=== PATIENT | female | born 1980 | race Two or more races ===

== ENCOUNTER → 2016-12-09 | Outpatient (CLI) | payer OTHER ==
[2016-12-07 14:13] VITALS: BMI 31.7
[2016-12-09 12:09] VITALS: BP 130/96; PULSE 87; RESP 18; TEMP 98
--- NOTE | 2016-12-09 12:46 | P.HPIM ---
History of Present Illness H&P Date: 12/09/16 Chief Complaint: low back pain This is a 36-year-old patient who comes in for a second opinion for chronic pain in low back without radiation to hips or legs, but does c/o occasional tingling in her feet when she stands up. Patient has not been taking any medications from primary care physician. Patient denies adverse drug effects from medications. Patient also denies new-onset weakness, bowel/bladder incontinence, or any other signs or symptoms of cauda equina syndrome. There are no signs of acute intoxication, and no indications of medication diversion or overuse. Patient notes that pain worsens significantly with standing and walking, and improves with sitting, rest, ice, and medication. Patient has used several types of medications for pain, including NSAIDS, OPIOIDS, TRAMADOL, ANTIDEPRESSANTS, and BENZODIAZEPINES. Patient HAS NOT had surgery. Patient HAS had injections previously but does not know what kind (Adam did x 5). Patient HAS had physical therapy recently. In addition to above, 13-point review of systems is also negative for chest pain , shortness of breath, changes in vision, changes in hearing, new onset weakness , abdominal pain, diarrhea, extreme fatigue, malaise, fever, skin changes, homicidal or suicidal ideation, or bowel or bladder incontinence. Vital Signs: Reviewed in EMR Gen: WDWN, AAOx3, NAD HEENT: NCAT, EOMI, hearing grossly normal Pulm: resp unlabored Abd: soft, NT, ND Neck: supple, trachea midline ROM in flexion lumbar spine: reduced ROM in extension lumbar spine: reduced Lumbar paravertebral tenderness: + Facet loading: + bilateral, L > R SI joint tenderness: neg Shawn's test: + R > L Straight leg raise: neg Neuro: CN II-XII grossly intact, muscle strength lower extremities PRESERVED Past Medical History Past Medical History: Cancer, Seizure Disorder, Thyroid Disorder Additional Past Medical History / Comment(s): hx anemia, epilepsy as child, cervical cancer, lower back pain History of Any Multi-Drug Resistant Organisms: None Reported Past Surgical History: Cholecystectomy Additional Past Surgical History / Comment(s): laser eye surgery Past Anesthesia/Blood Transfusion Reactions: No Reported Reaction Smoking Status: Current every day smoker - Past Family History Mother Family Medical History: No Reported History Medications and Allergies Home Medications Medication Instructions Recorded Confirmed Type ARIPiprazole [Abilify] 20 mg PO DAILY 12/07/16 12/09/16 History Dextroamphetamine/Amphetamine 30 mg PO DAILY 12/07/16 12/09/16 History [Adderall] Allergies Allergy/AdvReac Type Severity Reaction Status Date / Time No Known Allergies Allergy Verified 12/09/16 11:56 Results Comments: MRI lumbar spine dated 04/30/2016 demonstrates an 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 At the L3-L4 and L4-L5 levels there are mild facet degenerative changes bilaterally with a preserved spinal canal and preserved bilateral neural foramina. At the L5-S1 level there is a broad-based left paracentral disc protrusion minimally effacing the thecal sac with patent neural foramina. Assessment and Plan (1) Spondylosis of lumbar region without myelopathy or radiculopathy Status: Chronic (2) Lumbar disc herniation Status: Chronic (3) Chronic pain syndrome Status: Chronic (4) Lumbar degenerative disc disease Status: Chronic Plan: 1. Explanation: Opioid and psychological risk scores were reviewed. Diagnoses , prognoses, and multiple treatment options including but not limited to physical therapy, interventional therapies, adjuvant medical therapies, narcotic medication therapies, and surgery were discussed with the patient and all questions were answered to the patient's satisfaction. 2. Opioid agreement: no opioids prescribed today 3. Counseling: The patient was counseled extensively on SMOKING CESSATION, BODY MASS INDEX, EXERCISE. Specifically, the patient was instructed regarding the importance of smoking cessation, obesity, and exercise in the context of both chronic pain and overall health. 4. Procedures: bilateral lumbar MBB L3-S1 5. Consultations: none 6. Investigations: none 7. Medications: none prescribed 8. Disposition: f/u for procedure as scheduled PQRS measures: 1-Patient's medications are documented in the chart. 2-Tobacco use is positive, counseling given 3-Patient has not had a pneumococcal vaccine. 4-Advanced care planning discussed, patient unable to give. 5-Opioid contract NOT signed with the patient as no opioids prescribed. 6-Pain positive, follow-up visit or procedure scheduled 7-Patient's blood pressure measured and documented, and patient will follow up with the primary care due to hypertension. 8-Patient's weight was measured, and body mass index ABOVE the normal limits, and counseling was done. Patient instructed to follow up with PCP. 9-Patient WAS NOT identified as an unhealthy alcohol user. Time with Patient: Greater than 30
== END ==
LOC: PNWHC3 11:38
PROVIDERS: ATTEND Anesthesiology
DX: M51.26 Other intervertebral disc displacement, lumbar region (principal); M51.36 Other intervertebral disc degeneration, lumbar region; M47.816 Spondylosis without myelopathy or radiculopathy, lumbar region; G89.4 Chronic pain syndrome; Z79.891 Long term (current) use of opiate analgesic; Z79.899 Other long term (current) drug therapy
CPT/HCPCS: 99211

== ENCOUNTER 2017-01-13 07:55 | Day surgery (SDC) | payer OTHER ==
[2017-01-06 14:07] VITALS: BMI 30.9
[2017-01-13 08:42] VITALS: RESP 16; TEMP 98.1
[2017-01-13] MEDS ORDERED: LIDOCAINE 1% 20 ML VIAL (10MG/ML) FOR IV START INTRADERMA ONE (08:45)
[2017-01-13] MEDS ORDERED: LACTATED RINGERS 1,000 ML IV ONE (08:45)
[2017-01-13] MEDS ORDERED: LACTATED RINGERS 1,000 ML IV SCH (09:30)
[2017-01-13] MEDS ORDERED: IV FLUID CONTINUATION 1,000 ML IV ONE (10:12)
--- NOTE | 2017-01-13 10:24 | FL ---
EXAMINATION TYPE: FL guided pain mgmt statistic DATE OF EXAM: 01/13/2017 HISTORY: Pain Bilat lumbar facets. 14 sec fl time. [address] Winston.
--- NOTE | 2017-01-13 10:31 | P.PCN ---
Date of Procedure: 01/13/17 Preoperative Diagnosis: Postoperative Diagnosis: Procedure(s) Performed: Implants: Surgeon: Ricky Winston Pathology: none sent Condition: stable Disposition: PACU Indications for Procedure: Operative Findings: Description of Procedure: PREOPERATIVE DIAGNOSIS: L3-L4, L4-L5, and L5-S1 spondylosis without myelopathy and facet arthropathy. POSTOPERATIVE DIAGNOSIS: L3-L4, L4-L5, and L5-S1 spondylosis without myelopathy and facet arthropathy. PROCEDURE DESCRIPTION: Patient presents for L3-L4, L4-L5 and L5-S1 diagnostic medial branch blocks under fluoroscopic guidance. The procedure is performed using fluoroscopic guidance during needle placement to assure proper position and maximize safety. ANESTHESIA: Local with 1% lidocaine; conscious sedation EBL: Minimal PROCEDURE INDICATION: Patient with lumbar facet arthropathy signs and symptoms, here for diagnostic medial branch block. Pt does not take any blood thinning medications. PROCEDURE DESCRIPTION: The patient was seen and identified in the preoperative area. Risks, benefits, complications, and alternatives were discussed with the patient (including but not limited to incomplete pain relief, bleeding, infection, nerve damage, and allergies to medications), the patient agreed to proceed with the procedure and signed the consent after all questions were answered. Patient was taken to the OR and time out was completed to verify proper patient, position, laterality of pain, and allergies. Pt was placed in the prone position and a pillow was placed under the abdomen to reduce lumbar lordosis. The lumbosacral area was prepped and draped in the usual sterile fashion. Using oblique fluoroscopy, the eye of the "Sonu dog" of right L4 vertebral body, which corresponds to the path of the medial branch originating from the level above, which is L3 in this case, was identified. Subsequently, a 22-gauge 3.5-inch spinal needle was inserted under fluoroscopic guidance toward the eye of the "Sonu dog" of the right L4 vertebral body, corresponding to the junction of the superior articular process and the transverse process of the pedicle of the same level. After needle tip confirmation on lateral view and after negative aspiration for CSF and blood and without paresthesias, 1 mL of a 6 ml solution of 0.5% preservative-free bupivacaine and 40 mg Kenalog was injected. Subsequently the needle was withdrawn intact and the same procedure was repeated for the right L4, right L5, left L3, left L4, and left L5 medial branches which together with right L3 medial branch correspond to the sensory innervation of the bilateral L3-L4, L4-L5, and L5-S1 facet joints. Needle was withdrawn intact after each injection. At the end of the procedure, the skin was cleansed and bandages were applied. COMPLICATIONS: None. DISPOSITION/PLAN: The patient taken to the recovery area after the procedure in a stable condition for observation. Patient was reexamined prior to discharge and there were no issues. Patient was discharged home, accompanied by an adult, after meeting discharged criteria. Discharge instructions were give to the patient by the staff. Patient was specifically instructed not to drive today and to rest for the rest of the day. If relief, plan to repeat LMBB bilateral at next visit.
[2017-01-13 10:41] VITALS: BP 126/88; PULSE 78
== END 2017-01-13 10:49 | disposition home or self-care (01) ==
LOC: ORPAIN 07:55
PROVIDERS: ATTEND Anesthesiology
DX: G89.29 Other chronic pain (principal); M47.816 Spondylosis without myelopathy or radiculopathy, lumbar region; M47.817 Spondylosis without myelopathy or radiculopathy, lumbosacral region; M46.96 Unspecified inflammatory spondylopathy, lumbar region; M46.97 Unspecified inflammatory spondylopathy, lumbosacral region; F90.9 Attention-deficit hyperactivity disorder, unspecified type; Z79.899 Other long term (current) drug therapy
CPT/HCPCS: 81025; 64493; 64494; 64495; 99152; J2250; J3301; 99153

== ENCOUNTER → 2017-02-08 | Day surgery (SDC) | payer OTHER ==
[2017-02-03 15:02] VITALS: BMI 31.7
[~2017-02-08] MED LIST: IV FLUID CONTINUATION 1,000 ML IV ONE; LACTATED RINGERS 1,000 ML IV ONE; LACTATED RINGERS 1,000 ML IV SCH; LIDOCAINE 1% 20 ML VIAL (10MG/ML) FOR IV START INTRADERMA ONE
[2017-02-08 07:07] VITALS: TEMP 97.5
--- NOTE | 2017-02-08 08:15 | P.PCN ---
Date of Procedure: 02/08/17 Preoperative Diagnosis: Lumbar spondylosis without myelopathy Postoperative Diagnosis: Same as above Procedure(s) Performed: Lumbar bilateral medial branch block under fluoroscopic guidance Implants: Anesthesia: other (Moderate conscious sedation with IV Versed only) Surgeon: Inna Reese Pathology: none sent Condition: stable Disposition: PACU Indications for Procedure: Operative Findings: Description of Procedure: The patient was seen in preoperative holding area consent was obtained then she was brought into the procedure room and placed in prone position. Skin was prepped with ChloraPrep and draped in a sterile manner. Lidocaine 1% was used to numb the skin up at the target points that were chosen as follows: For the L5 -S1 level which corresponds to the dorsal ramus of L5 the target point was at the superior medial aspect of the sacral ala on each side of the spine on the AP view of fluoroscopy, and for the L2,L3 and L4 medial branches the target points were the connection between the transverse process and the superior articular process of L3,L4 and L5 vertebra respectively on the oblique views of fluoroscopy. I used 22-gauge 3-1/2 inch Quincke spinal needles for this procedure and after contacting bone at the target points mentioned above I injected 1 mL of Marcaine 0.5%. Patient tolerated procedure well. No Steroids were used for this procedure and no IV fentanyl either.
--- NOTE | 2017-02-08 08:24 | FL ---
Fluoroscopy INDICATION: Pain FINDINGS: Fluoroscopy time: 9 seconds. Images obtained: 3. IMPRESSIONS: 1. Documentation of fluoroscopy.
[2017-02-08 08:48] VITALS: BP 122/84; PULSE 74; RESP 16
== END ==
LOC: ORPAIN 06:57
PROVIDERS: ATTEND Anesthesiology
DX: M47.816 Spondylosis without myelopathy or radiculopathy, lumbar region (principal)
CPT/HCPCS: 81025; 64493; 64494; 64495; 99152; J2250

== ENCOUNTER → 2017-03-23 | Outpatient (CLI) | payer OTHER ==
[2017-03-23 14:38] VITALS: BP 132/87; PULSE 85; RESP 16
--- NOTE | 2017-03-23 19:50 | P.CONS ---
History of Present Illness - Reason for Consult Consult date: 03/23/17 - History of Present Illness This is follow-up visit for this patient with a history of severe and chronic low back pain secondary to lumbar degenerative disc disease, lumbar facet arthropathy, we did interventional pain management injection, we have done medial branch block x2 , the first diagnostic medial branch block patient reported that she got 100% pain relief for several days, and the second diagnostic medial branch block patient reported she had 0 benefit, patient continued to have severe low back pain, intensity of the pain increased with standing, or walking and improved with rest , he denies any motor or sensory deficit , she denies any fever or night sweats, she has no change in the bowel movement or urination Past Medical History Past Medical History: Cancer, Seizure Disorder, Thyroid Disorder Additional Past Medical History / Comment(s): hx anemia, epilepsy as child, cervical cancer, lower back pain History of Any Multi-Drug Resistant Organisms: None Reported Past Surgical History: Cholecystectomy Additional Past Surgical History / Comment(s): laser eye surgery, pain procedure Past Anesthesia/Blood Transfusion Reactions: No Reported Reaction Past Psychological History: Bipolar Smoking Status: Current every day smoker Past Alcohol Use History: Occasional Additional Past Alcohol Use History / Comment(s): smokes 1/2-1 PPD, started smoking age 10 Past Drug Use History: None Reported - Past Family History Mother Family Medical History: No Reported History Medications and Allergies Home Medications Medication Instructions Recorded Confirmed Type Dextroamphetamine/Amphetamine 30 mg PO DAILY 12/07/16 03/23/17 History [Adderall] Allergies Allergy/AdvReac Type Severity Reaction Status Date / Time No Known Allergies Allergy Verified 03/23/17 14:28 Physical Exam Vitals: Vital Signs Pulse Resp BP Pulse Ox 03/23/17 14:29 85 16 132/87 100 Intake and Output 03/23/17 03/23/17 03/23/17 06:59 14:59 22:59 Other: Weight 82.1 kg Patient Weight 03/24/17 06:59 Weight 82.1 kg Physical Examinations : 1-Constitutiona : Cooperative , not in acute distress . 2-HEENT : nech ; supple , no Lymphadenopathy , normal thyroid size . eyes : no ptosis , no icterus, no photophobia . ENT : normal of hearing , normal oropharynx , no Thrush . 3- Respiratory : Chest clear to auscultations Bilaterally , no wheezing , no Rhonchi . 4- Cardiovascular : regular rate and rhythem , S1 , S2 , no S3 , no S4. 5- Gastrointestinal : abdomen soft no tenderness , bowel sounds positive all four quadrents , no organomegally . 6- Genitourinary : Defferred . 7- neurologic : Cranial nerve II to XII intact , no focal neurological deffecit . 8-psychatric : alert , oriented X 3 , appropriate affect , intact judgment and insight . 9-Lymphatic : no Lymphadenopathy . 10- musculoskeltal : , Lumber spine = normal moter stegnth lower extremities ,thigh and legs .5/5 deep tendon reflexes : normal Knee Jerk , normal ankle Jerk . positive lumber facet Loading Test strait leg raising test negative bilaterally Fabere test negative bilaterally Assessment and Plan Plan: Assessment and plan= chronic low back pain secondary to lumbar degenerative disc disease , lumbar spondylosis with lumbar facet arthropathy , Patient clinical examination support ,that most of the pain coming from the facetogenic component, we have done diagnostic medial branch block lumbar area she got under percent relief from the first injection then she got 0 benefit from the second injection, the best option at this point is to schedule patient to have a repeat diagnostic medial branch block lumbar area is L3-4 , L4-5, L5- S1 elicits positive then we'll proceed with the radiofrequency ablation of the medial branch and if it [place] and only option is to undergo lumbar epidural steroid injections, treatment plan discussed with the patient and she agreed with the preceding Time with Patient: Less than 30
== END | disposition home or self-care (01) ==
LOC: PNWHC3 14:25
PROVIDERS: ATTEND Specialist
DX: M51.36 Other intervertebral disc degeneration, lumbar region (principal); M47.816 Spondylosis without myelopathy or radiculopathy, lumbar region; M46.86 Other specified inflammatory spondylopathies, lumbar region; F17.200 Nicotine dependence, unspecified, uncomplicated; Z79.899 Other long term (current) drug therapy
CPT/HCPCS: 99211

== ENCOUNTER 2017-05-19 07:57 | Day surgery (SDC) | payer OTHER ==
[2017-05-17 13:38] VITALS: BMI 31.7
[~2017-05-19 07:57] MED LIST changes: -IV FLUID CONTINUATION 1,000 ML IV ONE; -LACTATED RINGERS 1,000 ML IV ONE; -LIDOCAINE 1% 20 ML VIAL (10MG/ML) FOR IV START INTRADERMA ONE
[2017-05-19 08:23] VITALS: RESP 18; TEMP 97.1
[2017-05-19] MEDS ORDERED: LIDOCAINE 1% 20 ML VIAL (10MG/ML) FOR IV START INTRADERMA ONE (08:27)
[2017-05-19] MEDS ORDERED: IV FLUID CONTINUATION 1,000 ML IV ONE (09:10)
[2017-05-19 09:27] VITALS: BP 123/85; PULSE 73
--- NOTE | 2017-05-19 09:29 | FL ---
EXAMINATION TYPE: FL guided pain mgmt statistic DATE OF EXAM: 05/19/2017 CLINICAL HISTORY: Low back pain. TECHNIQUE: Fluoroscopy. COMPARISON: None. FINDINGS: Fluoroscopic guidance was provided during pain relief procedure performed by Dr. Winston . A total of 6 seconds of fluoroscopic time was utilized during the procedure and 3 spot images are acq uired. Images acquired shows needle localization at several levels in the mid to lower lumbar spine. IMPRESSION: As Above.
--- NOTE | 2017-05-19 10:49 | P.PCN ---
Date of Procedure: 05/19/17 Surgeon: Ricky Winston Pathology: none sent Condition: stable Disposition: PACU Description of Procedure: PREOPERATIVE DIAGNOSIS: Lumbar spondylosis without myelopathy and facet arthropathy POSTOPERATIVE DIAGNOSIS: Lumbar spondylosis without myelopathy and facet arthropathy PROCEDURES: Right Radiofrequency thermocoagulation, L3-L4, L4-L5, and L5-S1 medial branch, with fluoroscopic guidance. ANESTHESIA: 1% lidocaine plain; Conscious sedation with versed/fentanyl EBL: Minimal PROCEDURE INDICATION: The patient with low back pain secondary to lumbar arthropathy who had more than 50% relief of pain with previous diagnostic lumbar medial branch block with bupivacaine. Patient presents for right lumbar RFA today; no use of blood thinners. PROCEDURE DESCRIPTION / TECHNIQUE: The patient was seen and identified in the preoperative area. Risks, benefits, complications, and alternatives were discussed with the patient (including but not limited to incomplete pain relief , bleeding, infection, nerve damage, and allergies to medications), the patient agreed to proceed with the procedure and signed the consent after all questions were answered. Patient was taken to the OR and time out was completed to verify proper patient , position, laterality of pain, and allergies. Pt was placed in the prone position. IV was started. Vital signs remained stable throughout the procedure. A pillow was placed under the patients chest to decrease lordosis. The lumbosacral area was prepped and draped in the usual sterile fashion. Vital signs were closely monitored during the procedure. Conscious sedation was used during the procedure to decrease patients anxiety. Using AP and then oblique fluoroscopy, the eye of the Sonu dog corresponding to the connection between the superior and transverse articular processes of right L3, L4, L5 and top of the sacrum were identified, marked, and localized with 1% lidocaine. Subsequently, a 20 gauge, 100-mm radiofrequency cannula with a 10-mm active tip was advanced guided by fluoroscopy to each of the eyes of the Sonu dog at the levels of all four medial branches. Each site then underwent sensory testing at 50 Hz and 0 to 1 volt and motor testing at 2 Hz and 0 to 3 volt with local stimulation, but no radicular symptoms down the legs. Thereafter all four medial branch sites underwent radiofrequency thermocoagulation at 80 degrees Celsius for 90 seconds after injecting 0.5 ml of PF lidocaine 1%. After thermocoagulation, 1 ml of the block solution containing Kenalog 40 mg and 2 mL of preservative-free normal saline was injected at all four medial branch levels after negative aspiration of CSF and blood and with no paresthesias. Cannulas were retracted while injecting lidocaine 1% until the needles were removed. At the end of the procedure, the skin was cleansed and bandages were applied. COMPLICATIONS: No acute complications. DISPOSITION / PLANS: The patient was placed in a supine position and transferred to the recovery area in a stable condition for observation and was discharged from the recovery room after meeting discharge criteria. Home discharge instructions given to the patient by the staff. The patient was reexamined prior to discharge. The patient will schedule a left lumbar RFA in 4- 6 weeks.
== END 2017-05-19 09:46 | disposition home or self-care (01) ==
LOC: ORPAIN 07:57
PROVIDERS: ATTEND Anesthesiology
DX: G89.29 Other chronic pain (principal); M47.816 Spondylosis without myelopathy or radiculopathy, lumbar region; M46.96 Unspecified inflammatory spondylopathy, lumbar region
CPT/HCPCS: 64635; 64636 ×2; 81025; J2250; J3301; J3010; 99152

== ENCOUNTER 2017-06-29 08:01 | Day surgery (SDC) | payer OTHER ==
[2017-06-18 12:25] VITALS: BMI 31.7
[2017-06-29] MEDS ORDERED: LIDOCAINE 1% 20 ML VIAL (10MG/ML) FOR IV START INTRADERMA ONE (08:37)
[2017-06-29 08:48] VITALS: TEMP 97.6
--- NOTE | 2017-06-29 10:00 | P.PCN ---
Date of Procedure: 06/29/17 Surgeon: Ricky Winston Pathology: none sent Condition: stable Disposition: PACU Description of Procedure: PREOPERATIVE DIAGNOSIS: Lumbar spondylosis without myelopathy and facet arthropathy POSTOPERATIVE DIAGNOSIS: Lumbar spondylosis without myelopathy and facet arthropathy PROCEDURES: Left Radiofrequency thermocoagulation, L3-L4, L4-L5, and L5-S1 medial branch, with fluoroscopic guidance. ANESTHESIA: 1% lidocaine plain; Conscious sedation with versed/fentanyl EBL: Minimal PROCEDURE INDICATION: The patient with low back pain secondary to lumbar arthropathy who had more than 50% relief of pain with previous diagnostic lumbar medial branch block with bupivacaine. Patient presents for left lumbar RFA today after getting good relief from right side done in April; no use of blood thinners. PROCEDURE DESCRIPTION / TECHNIQUE: The patient was seen and identified in the preoperative area. Risks, benefits, complications, and alternatives were discussed with the patient (including but not limited to incomplete pain relief , bleeding, infection, nerve damage, and allergies to medications), the patient agreed to proceed with the procedure and signed the consent after all questions were answered. Patient was taken to the OR and time out was completed to verify proper patient , position, laterality of pain, and allergies. Pt was placed in the prone position. IV was started. Vital signs remained stable throughout the procedure. A pillow was placed under the patients chest to decrease lordosis. The lumbosacral area was prepped and draped in the usual sterile fashion. Vital signs were closely monitored during the procedure. Conscious sedation was used during the procedure to decrease patients anxiety. Using AP and then oblique fluoroscopy, the eye of the Sonu dog corresponding to the connection between the superior and transverse articular processes of left L3, L4, L5 and top of the sacrum were identified, marked, and localized with 1% lidocaine. Subsequently, an 18 gauge, 100-mm radiofrequency cannula with a 10-mm active tip was advanced guided by fluoroscopy to each of the eyes of the Sonu dog at the levels of all four medial branches. Each site then underwent sensory testing at 50 Hz and 0 to 1 volt and motor testing at 2 Hz and 0 to 3 volt with local stimulation, but no radicular symptoms down the legs. Thereafter all four medial branch sites underwent radiofrequency thermocoagulation at 80 degrees Celsius for 90 seconds after injecting 0.5 ml of PF lidocaine 1%. After thermocoagulation, 1 ml of the block solution containing Kenalog 40 mg and 2 mL of preservative-free normal saline was injected at all four medial branch levels after negative aspiration of CSF and blood and with no paresthesias. Cannulas were retracted while injecting lidocaine 1% until the needles were removed. At the end of the procedure, the skin was cleansed and bandages were applied. COMPLICATIONS: No acute complications. DISPOSITION / PLANS: The patient was placed in a supine position and transferred to the recovery area in a stable condition for observation and was discharged from the recovery room after meeting discharge criteria. Home discharge instructions given to the patient by the staff. The patient was reexamined prior to discharge. The patient will schedule a follow-up as needed.
--- NOTE | 2017-06-29 10:19 | FL ---
EXAMINATION TYPE: FL guided pain mgmt statistic DATE OF EXAM: 06/29/2017 HISTORY: Flouroscopy time 7 seconds of fluoroscopy provided. IMPRESSION: 1. Fluoroscopy time.
[2017-06-29 10:25] VITALS: RESP 18
[2017-06-29] MEDS ORDERED: IV FLUID CONTINUATION 300 ML IV ONE (10:31)
[2017-06-29 10:41] VITALS: BP 120/85; PULSE 77
== END 2017-06-29 10:58 | disposition home or self-care (01) ==
LOC: ORPAIN 08:01
PROVIDERS: ATTEND Anesthesiology
DX: M47.816 Spondylosis without myelopathy or radiculopathy, lumbar region (principal); F32.9 Major depressive disorder, single episode, unspecified
CPT/HCPCS: 81025; 64635; 64636 ×2; J2250; J3301; J2001; J3010; 99152

== ENCOUNTER → 2017-07-15 | Outpatient (CLI) | payer OTHER ==
--- NOTE | 2017-07-15 20:52 | US ---
EXAMINATION TYPE: US pelvic complete DATE OF EXAM: 07/15/2017 COMPARISON: NONE CLINICAL HISTORY: N92.1 MENORRHAGIA W/IRR.CYCLE; 3 months of multiple menses; TECHNIQUE: Transvaginal (TV) per patient as bladder not full for TA US assessment Date of LMP: 07/14/2017 EXAM MEASUREMENTS: Uterus: 7.9 x 3.9 x 3.5 cm Endometrial Stripe: 0.4 cm Right Ovary: 2.4 x 2.2 x 1.8 cm Left Ovary: 3.3 x 3.0 x 1.9 cm 1. Uterus: Anteverted. couple of Nabothian cysts in cervix with larger = 0.5 x 0.5 x 0.5cm. 2. Endometrium: thickness is wnl for day 2 LMP 3. Right Ovary: multifollicular with largest cyst = 1.1 x 1.1 x 0.6cm 4. Left Ovary: multiple follicles with largest as simple cyst = 1.4 x 1.6 x 1.6cm 5. Bilateral Adnexa: wnl 6. Posterior cul-de-sac: wnl IMPRESSION: 1. Cysts within the bilateral ovaries.
== END | disposition home or self-care (01) ==
LOC: RADUSWWP 12:55
PROVIDERS: ATTEND Obstetrics & Gynecology
DX: N83.202 Unspecified ovarian cyst, left side (principal); N83.201 Unspecified ovarian cyst, right side; N92.1 Excessive and frequent menstruation with irregular cycle
CPT/HCPCS: 76830; 83001; 83002; 84146; 84443

== ENCOUNTER → 2017-08-10 | Outpatient (CLI) | payer OTHER ==
[2017-08-10 12:00] VITALS: BP 137/95; PULSE 84; RESP 16
--- NOTE | 2017-08-10 20:01 | P.PN ---
Subjective Progress Note Date: 08/10/17 This is a follow-up visit for this 36 years old female with a chronic history of severe low back pain, she was diagnosed with lumbar degenerative disc disease and lumbar spondylosis, we have done diagnostic medial branch block lumbar area, and later on we have done radiofrequency ablation of the medial branch lumbar area, patient reported that she had no benefit from the radiofrequency, the pain level was the same before and after the radiofrequency , and she had 0 benefit from it, and she reported that she had lumbar epidural steroid injections done by Dr. Medina neurologist, and she reported that she had no benefit from it, she tried different kind of pain medication , prescribed by Dr. Medina and she had side effects from it or no benefit, she tried physical therapy without any benefit, I discussed with the patient doesn't interview that she had no benefit from the interventional pain procedure, and she had no benefit from physical therapy, and she had no benefit from medication that was prescribed by Dr. Medina or she had side effects from the medication, there is nothing I can offer for this patient, only option for her is still see neuro surgeon/spine surgeon, for evaluation, patient reported that she will talk to her primary care, regarding the treatments options , Patient denies any motor or sensory deficit she denies any change in the bowel movement or urination she denies any fever or night sweats, and she is able to ambulate without any difficulty,, she will follow up with the pain clinic on a when necessary basis
== END | disposition home or self-care (01) ==
LOC: PNWHC3 11:18
PROVIDERS: ATTEND Specialist
DX: G89.29 Other chronic pain (principal); M51.36 Other intervertebral disc degeneration, lumbar region; M47.816 Spondylosis without myelopathy or radiculopathy, lumbar region
CPT/HCPCS: 99211

== ENCOUNTER 2017-08-12 08:56 | Day surgery (SDC) | payer OTHER ==
[2017-08-06 15:09] VITALS: BMI 29.2
[~2017-08-12 08:56] MED LIST changes: +HYDROmorphone 0.5 MG/0.5 ML SYRINGE IVP PRN; +ONDANSETRON 4 MG/2 ML VIAL IVP PRN; +Pre Op ABX Message 1 EACH MISC MISCELLANE ONE; +fentaNYL (PF) 50 MCG/ML 2 ML AMP IV PRN
--- NOTE | 2017-08-12 08:57 | P.HPOB ---
History of Present Illness H&P Date: 08/12/17 Chief Complaint: Dysfunctional uterine bleeding Anahy is a 36-year-old female with dysfunctional uterine bleeding. Bleeding is described as heavy and irregular. She relates that she is unable to function much of the time due to how heavy and irregular bleeding is she bleeds at least twice each month and this is been going on for number of months. Due to symptoms a D&C is required for tissue sampling and she is requesting NovaSure ablation at the same time to try and risks/benefits/alternatives were reviewed with the patient in detail and did include potentially but not limited to perforation of the uterus as well as failure of the procedure to work and or continued bleeding, as well as potentially pain due to adenomyosis that may occur in the future due to the ablation. On physical exam vital signs are stable and afebrile. Heart regular, lungs clear, extremities are without pain. Abdomen is soft nontender positive bowel sounds are noted. Pelvic exam is otherwise unremarkable. Her did have a vasectomy. Assessment dysfunctional uterine bleeding. Plan D&C with hysteroscopy and NovaSure ablation. 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) cervical cancer, lower back pain History of Any Multi-Drug Resistant Organisms: None Reported Past Surgical History: Cholecystectomy Additional Past Surgical History / Comment(s): laser eye surgery, pain procedure Past Anesthesia/Blood Transfusion Reactions: No Reported Reaction Smoking Status: Current every day smoker - Past Family History Mother Family Medical History: No Reported History Medications and Allergies Home Medications Medication Instructions Recorded Confirmed Type Dextroamphetamine/Amphetamine 30 mg PO DAILY 12/07/16 08/10/17 History [Adderall] Allergies Allergy/AdvReac Type Severity Reaction Status Date / Time No Known Allergies Allergy Verified 08/10/17 11:48 Exam Osteopathic Statement: *. No significant issues noted on an osteopathic structural exam other than those noted in the History and Physical/Consult.
[2017-08-12 09:38] VITALS: TEMP 97.6
[2017-08-12] MEDS ORDERED: LIDOCAINE 1% 20 ML VIAL (10MG/ML) FOR IV START INTRADERMA ONE (09:46)
[2017-08-12] MEDS ORDERED: KETOROLAC 30 MG/ML 1 ML VIAL ONE (10:39)
[2017-08-12] MEDS ORDERED: LIDOCAINE 1% INJ 10MG/ML (20 ML MDV) ONE (10:39)
[2017-08-12] MEDS ORDERED: PROPOFOL 10 MG/ML 20 ML VIAL IV ONE (10:39)
[2017-08-12] MEDS ORDERED: fentaNYL (PF) 50 MCG/ML 2 ML AMP ONE (10:39)
[2017-08-12] MEDS ORDERED: MIDAZOLAM 2 MG/2 ML VIAL ONE (10:39)
--- NOTE | 2017-08-12 11:14 | P.OP ---
Date of Procedure: 08/12/17 Preoperative Diagnosis: Dysfunctional uterine bleeding Postoperative Diagnosis: Same Procedure(s) Performed: D&C with hysteroscopy and NovaSure Anesthesia: PRADEEP Surgeon: Deven Rubalcava Pathology: other (Uterine curettings) Condition: stable Disposition: same day Operative Findings: No gross pathology Description of Procedure: Patient states the operating suite where a general anesthetic was found be adequate. She was prepped and draped in the normal sterile fashion and placed in the dorsal lithotomy position. Initially a speculum was inserted into the vagina and the anterior lip was identified and grasped with a Allis clamp. Cervix then dilated and sounded to uterine cavity length of 4 cm. Camera was then inserted pathologies noted therefore camera was removed and sharp curettings of the endometrium were obtained. This tissue was all collected and placed on Telfa and sent to pathology for evaluation. Once collected the NovaSure system was placed with a length of 4 and a width of 2.5 it was tested and enabled. The burn lasted for 2 minutes. At the conclusion of the burn NovaSure system was removed and camera was reinserted with excellent burn noted. All instruments were then removed sponge, lap, needle counts were all correct 2. Patient was then taken to the recovery room in stable and satisfactory condition. Plan - Discharge Summary New Discharge Prescriptions: New Ibuprofen [Motrin] 600 mg PO Q6HR PRN #30 tab PRN Reason: Pain No Action Dextroamphetamine/Amphetamine [Adderall] 30 mg PO DAILY Discharge Medication List Dextroamphetamine/Amphetamine [Adderall] 30 mg PO DAILY 12/07/16 [History] Ibuprofen [Motrin] 600 mg PO Q6HR PRN #30 tab 08/12/17 [Rx] Follow up Appointment(s)/Referral(s): Deven Rubalcava DO [Doctor of Osteopathic Medicine] - 2 Weeks Activity/Diet/Wound Care/Special Instructions: No heavy lifting, limit stairs and driving, and pelvic rest. If any high temperatures, heavy bleeding, or severe pain call my office
[2017-08-12 13:08] VITALS: BP 120/69; PULSE 74; RESP 18
== END 2017-08-12 13:10 | disposition home or self-care (01) ==
LOC: OR 08:56
PROVIDERS: ATTEND Obstetrics & Gynecology
DX: N93.8 Other specified abnormal uterine and vaginal bleeding (principal); E07.9 Disorder of thyroid, unspecified; Z85.41 Personal history of malignant neoplasm of cervix uteri; Z79.899 Other long term (current) drug therapy; F17.200 Nicotine dependence, unspecified, uncomplicated
CPT/HCPCS: 81025; 88305; 58563; J2250; J2405; J2001; J3010; J1885; J2704; J1170

== ENCOUNTER 2017-08-14 12:45 | Observation (INO) | payer OTHER ==
[2017-08-14] MEDS ORDERED: IBUPROFEN 600 MG TAB PO STA (13:16)
[2017-08-14] MEDS ORDERED: ACETAMINOPHEN TAB 325 MG TAB PO STA (13:16)
--- NOTE | 2017-08-14 13:18 | ED ---
General Adult HPI <David Koo - Last Filed: 08/14/17 15:22> - General Source: patient, RN notes reviewed Mode of arrival: ambulatory Limitations: no limitations <Amara Jordan - Last Filed: 08/14/17 15:30> - General Chief complaint: Fever Stated complaint: Post Op Issues-chills Time Seen by Provider: 08/14/17 13:04 - History of Present Illness Initial comments: 36-year-old female presents to the emergency department with a chief complaint of fever post uterine ablation 2 days ago. She states she developed a fever starting yesterday. She's had hot and cold the only other symptom she's had is bilateral lower extremity cramping. No cough no runny nose no nausea no vomiting no abdominal pain. Her vaginal bleeding is minimal. She states that she use Motrin Tylenol last night she just keeps getting the chills and fevers so they were concerned. No significant health history the child. Otherwise healthy. She does smoke.Patient denies any recent shortness of breath, chest pain, back pain, abdominal pain, nausea vomiting, numbness or tingling, dysuria or hematuria, constipation or diarrhea, headaches or visual changes, or any other current symptoms. (Amara Jordan) - Related Data Previous Rx's Medication Instructions Recorded Ibuprofen [Motrin] 600 mg PO Q6HR PRN #30 tab 08/12/17 Allergies Allergy/AdvReac Type Severity Reaction Status Date / Time No Known Allergies Allergy Verified 08/14/17 13:00 Review of Systems ROS Other: All systems not noted in ROS Statement are negative. <David Koo - Last Filed: 08/14/17 15:22> ROS Other: All systems not noted in ROS Statement are negative. <Amara Jordan - Last Filed: 08/14/17 15:30> ROS Statement: Those systems with pertinent positive or pertinent negative responses have been documented in the HPI. 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) cervical cancer, lower back pain History of Any Multi-Drug Resistant Organisms: None Reported Past Surgical History: Cholecystectomy Additional Past Surgical History / Comment(s): laser eye surgery, pain procedure Past Anesthesia/Blood Transfusion Reactions: No Reported Reaction Past Psychological History: Bipolar Smoking Status: Current every day smoker Past Alcohol Use History: None Reported Past Drug Use History: None Reported - Past Family History Mother Family Medical History: No Reported History <Amara Jordan - Last Filed: 08/14/17 15:30> General Exam <David Koo - Last Filed: 08/14/17 15:22> Limitations: no limitations External exam: Present: normal external exam Speculum exam: Present: normal speculum exam, cervical discharge (yellow) By manual exam: Present: normal by manual exam <Amara Jordan - Last Filed: 08/14/17 15:30> - General Exam Comments Initial Comments: General: The patient is awake and alert, in no distress, and does not appear acutely ill. Eye: Pupils are equal, round and reactive to light, extra-ocular movements are intact; there is normal conjunctiva bilaterally. No signs of icterus. Ears, nose, mouth and throat: There are moist mucous membranes and no oral lesions. Neck: The neck is supple, there is no tenderness. Cardiovascular: There is a regular rate and rhythm. No murmur, rub or gallop is appreciated. Respiratory: Lungs are clear to auscultation, respirations are non-labored, breath sounds are equal. No wheezes, stridor, rales, or rhonchi. Gastrointestinal: Soft, non-distended, non-tender abdomen without masses or organomegaly noted. There is no rebound or guarding present. No CVA tenderness. Bowel sounds are unremarkable. Back: There is no tenderness to palpation in the midline. There is no obvious deformity. No rashes noted. Musculoskeletal: Normal ROM, no tenderness, There is no pedal edema. There is no calf tenderness or swelling. Sensation intact. Pulses equal bilaterally 2+. Neurological: CN II-XII intact, There are no obvious motor or sensory deficits. Coordination appears grossly intact. Speech is normal. Skin: Skin is warm and dry and no rashes or lesions are noted. Psychiatric: Cooperative, appropriate mood & affect, normal judgment. (Amara Jordan) Course <David Koo - Last Filed: 08/14/17 15:22> <Amara Jordan - Last Filed: 08/14/17 15:30> Vital Signs 08/14/17 08/14/17 12:52 14:51 Temperature 104.0 F H 101.7 F H Pulse Rate 115 H 93 Respiratory 20 18 Rate Blood Pressure 144/87 92/54 O2 Sat by Pulse 99 97 Oximetry - Reevaluation(s) Reevaluation #1: 08/14/17 15:22 Patient was reevaluated by myself, Dr. Koo. Patient lying in bed however does appear somewhat uncomfortable. No tenderness to abdominal exam. Patient and family updated on results and plan. Case was discussed with Dr. Lucia, who will admit for Dr. Schulz. He recommends continuing Unasyn and is agreeable with computed tomography scan. He will evaluate patient later. (David Koo) 08/14/17 15:00 At this time patient does meet sepsis criteria. This time antibiotics have been initiated. (Amara Jordan) EKG Findings - EKG Comments: EKG Findings:: Sinus tachycardia, ventricular rate 108, AZ interval 122, QRS duration 90 <Amara Jordan - Last Filed: 08/14/17 15:30> Medical Decision Making - Lab Data Result diagrams: 08/14/17 13:35 08/14/17 13:35 <David Koo - Last Filed: 08/14/17 15:22> - Lab Data Result diagrams: 08/14/17 13:35 08/14/17 13:35 - Radiology Data Radiology results: report reviewed, image reviewed <Amara Jordan - Last Filed: 08/14/17 15:30> - Medical Decision Making 36-year-old female presents for fever. At this time patient's lab work has been reviewed and a pelvic was performed. At this time we do not see the source the patient's infection. We will start him on Unasyn. We did contact on -call be due to the patient's previous surgery and they're recommending a computed tomography scan of the abdomen and pelvis with contrast which has been ordered and they will follow-up on. Patient's blood pressure has dropped here we did give her a second liter we will continue maintenance minute patient of IV fluids as well as the antibiotics for the patient will continue Motrin Tylenol and patient will be admitted to the hospital patient is in agreement with this plan. (Amara Jordan) - Lab Data Lab Results 02/08/14/17 08/14/17 Range/Units 13:35 13:35 13:35 WBC 6.7 (3.8-10.6) k/uL RBC 4.38 (3.80-5.40) m/uL Hgb 11.1 L (11.4-16.0) gm/dL Hct 34.6 (34.0-46.0) % MCV 79.1 L (80.0-100.0) fL MCH 25.2 (25.0-35.0) pg MCHC 31.9 (31.0-37.0) g/dL RDW 14.5 (11.5-15.5) % Plt Count 230 (150-450) k/uL Neutrophils % 91 % Lymphocytes % 6 % Monocytes % 2 % Eosinophils % 0 % Basophils % 0 % Neutrophils # 6.1 (1.3-7.7) k/uL Lymphocytes # 0.4 L (1.0-4.8) k/uL Monocytes # 0.1 (0-1.0) k/uL Eosinophils # 0.0 (0-0.7) k/uL Basophils # 0.0 (0-0.2) k/uL PT (9.0-12.0) sec INR (<1.2) APTT (22.0-30.0) sec Sodium 133 L (137-145) mmol/L Potassium 3.3 L (3.5-5.1) mmol/L Chloride 102 (98-107) mmol/L Carbon Dioxide 21 L (22-30) mmol/L Anion Gap 10 mmol/L BUN 6 L (7-17) mg/dL Creatinine 0.60 (0.52-1.04) mg/dL Est GFR (MDRD) Af Amer >60 (>60 ml/min/1.73 sqM) Est GFR (MDRD) Non-Af >60 (>60 ml/min/1.73 sqM) Glucose 114 H (74-99) mg/dL Plasma Lactic Acid Idonicio 2.0 (0.7-2.0) mmol/L Calcium 8.4 (8.4-10.2) mg/dL Total Bilirubin 0.4 (0.2-1.3) mg/dL AST 51 H (14-36) U/L ALT 33 (9-52) U/L Alkaline Phosphatase 114 (38-126) U/L Total Protein 6.3 (6.3-8.2) g/dL Albumin 3.3 L (3.5-5.0) g/dL Urine Color Urine Appearance (Clear) Urine pH (5.0-8.0) Ur Specific [place] (1.001-1.035) Urine Protein (Negative) Urine Glucose (UA) (Negative) Urine Ketones (Negative) Urine Blood (Negative) Urine Nitrite (Negative) Urine Bilirubin (Negative) Urine Urobilinogen (<2.0) mg/dL Ur Leukocyte Esterase (Negative) Urine RBC (0-5) /hpf Urine WBC (0-5) /hpf Ur Squamous Epith Cells (0-4) /hpf Urine Mucus (None) /hpf Influenza Type A RNA (Not Detectd) Influenza Type B (PCR) (Not Detectd) 08/14/17 08/14/17 08/14/17 Range/Units 13:35 13:35 13:35 WBC (3.8-10.6) k/uL RBC (3.80-5.40) m/uL Hgb (11.4-16.0) gm/dL Hct (34.0-46.0) % MCV (80.0-100.0) fL MCH (25.0-35.0) pg MCHC (31.0-37.0) g/dL RDW (11.5-15.5) % Plt Count (150-450) k/uL Neutrophils % % Lymphocytes % % Monocytes % % Eosinophils % % Basophils % % Neutrophils # (1.3-7.7) k/uL Lymphocytes # (1.0-4.8) k/uL Monocytes # (0-1.0) k/uL Eosinophils # (0-0.7) k/uL Basophils # (0-0.2) k/uL PT 10.7 (9.0-12.0) sec INR 1.1 (<1.2) APTT 22.7 (22.0-30.0) sec Sodium (137-145) mmol/L Potassium (3.5-5.1) mmol/L Chloride (98-107) mmol/L Carbon Dioxide (22-30) mmol/L Anion Gap mmol/L BUN (7-17) mg/dL Creatinine (0.52-1.04) mg/dL Est GFR (MDRD) Af Amer (>60 ml/min/1.73 sqM) Est GFR (MDRD) Non-Af (>60 ml/min/1.73 sqM) Glucose (74-99) mg/dL Plasma Lactic Acid Dionicio (0.7-2.0) mmol/L Calcium (8.4-10.2) mg/dL Total Bilirubin (0.2-1.3) mg/dL AST (14-36) U/L ALT (9-52) U/L Alkaline Phosphatase (38-126) U/L Total Protein (6.3-8.2) g/dL Albumin (3.5-5.0) g/dL Urine Color Yellow Urine Appearance Clear (Clear) Urine pH 6.0 (5.0-8.0) Ur Specific [place] 1.011 (1.001-1.035) Urine Protein Negative (Negative) Urine Glucose (UA) Negative (Negative) Urine Ketones Negative (Negative) Urine Blood Moderate H (Negative) Urine Nitrite Negative (Negative) Urine Bilirubin Negative (Negative) Urine Urobilinogen <2.0 (<2.0) mg/dL Ur Leukocyte Esterase Moderate H (Negative) Urine RBC 9 H (0-5) /hpf Urine WBC 6 H (0-5) /hpf Ur Squamous Epith Cells 1 (0-4) /hpf Urine Mucus Rare H (None) /hpf Influenza Type A RNA Not Detected (Not Detectd) Influenza Type B (PCR) Not Detected (Not Detectd) Disposition <David Koo - Last Filed: 08/14/17 15:22> Decision Date: 08/14/17 Decision Time: 15:30 <Amara Jordan - Last Filed: 08/14/17 15:30> Clinical Impression: Sepsis, Fever, Hypokalemia Disposition: ADMITTED IP TO THIS HOSP Condition: Stable Referrals: None,Stated [Primary Care Provider] - 1-2 days
[2017-08-14] MEDS: SODIUM CHLORIDE 0.9% 500 ML IV SCH ×2 (13:45→13:46)
[2017-08-14 14:10] LABS: ALT 33 U/L (9-52); AST 51 U/L (14-36); Albumin 3.3 g/dL (3.5-5.0); Alkaline Phosphatase 114 U/L (38-126); Anion Gap 10 mmol/L; Blood Urea Nitrogen 6 mg/dL (7-17); Calcium 8.4 mg/dL (8.4-10.2); Carbon Dioxide 21 mmol/L (22-30); Chloride 102 mmol/L (98-107); Glucose 114 mg/dL (74-99); Potassium 3.3 mmol/L (3.5-5.1); Sodium 133 mmol/L (137-145); Total Bilirubin 0.4 mg/dL (0.2-1.3); Total Protein 6.3 g/dL (6.3-8.2)
[2017-08-14 14:14] LABS: INR 1.1 (<1.2); Partial Thromboplastin Time 22.7 sec (22.0-30.0); Prothrombin Time 10.7 sec (9.0-12.0)
--- NOTE | 2017-08-14 14:15 | XR ---
EXAMINATION TYPE: XR chest 2V DATE OF EXAM: 08/14/2017 COMPARISON: NONE HISTORY: Fever today, history of D&C a few days ago. TECHNIQUE: Frontal and lateral views of the chest are obtained. FINDINGS: Slightly elevated left hemidiaphragm is present. There is no focal air space opacity, pleu ral effusion, or pneumothorax seen. The cardiac silhouette size is within normal limits. The osseo us structures are intact. IMPRESSION: No suspicious acute pulmonary process.
[2017-08-14 14:19] LABS: Appearance,Urine Clear (Clear); Basophils % (A) 0 %; Bilirubin,Urine Negative (Negative); Blood,Urine Moderate (Negative); Color,Urine Yellow; Eosinophils % (A) 0 %; Glucose,Urine (UA) Negative (Negative); HCT 34.6 % (34.0-46.0); HGB 11.1 gm/dL (11.4-16.0); Ketones,Urine Negative (Negative); Leukocyte Esterase,Urine Moderate (Negative); Lymphocytes # (A) 0.4 k/uL (1.0-4.8); Lymphocytes % (A) 6 %; MCH 25.2 pg (25.0-35.0); MCHC 31.9 g/dL (31.0-37.0); MCV 79.1 fL (80.0-100.0); Mean Platelet Volume 6.7; Monocytes # (A) 0.1 k/uL (0-1.0); Monocytes % (A) 2 %; Mucus,Urine Rare /hpf; Neutrophils # (A) 6.1 k/uL (1.3-7.7); Neutrophils % (A) 91 %; Platelet Count 230 k/uL (150-450); Protein,Urine Negative (Negative); RBC 4.38 m/uL (3.80-5.40); RBC,Urine 9 /hpf (0-5); RDW 14.5 % (11.5-15.5); Specific Gravity,Urine 1.011 (1.001-1.035); Squamous Epithelial Cell,Urine 1 /hpf (0-4); Urobilinogen,Urine <2.0 mg/dL (<2.0); WBC 6.7 k/uL (3.8-10.6); WBC,Urine 6 /hpf (0-5)
[2017-08-14] MEDS ORDERED: SODIUM CHLORIDE 0.9% 1,000 ML IV STA (14:57)
[2017-08-14] MEDS ORDERED: AMPICILLIN-SULBACTAM 3 GM in SODIUM CHLORIDE 0.9% 100 ML IVPB STA (14:59)
[2017-08-14] MEDS ORDERED: RX INFO: IV CONTRAST WAS GIVEN 1 EACH MISC MISCELLANE PRN (15:27)
[2017-08-14] MEDS ORDERED: NALOXONE 0.4 MG/ML 1 ML VIAL IV PRN (15:30)
[2017-08-14] MEDS ORDERED: ACETAMINOPHEN TAB 325 MG TAB PO PRN (15:30)
[2017-08-14] MEDS ORDERED: IBUPROFEN 400 MG TAB PO PRN (15:30)
--- NOTE | 2017-08-14 16:03 | CT ---
EXAMINATION TYPE: CT abdomen pelvis w con DATE OF EXAM: 08/14/2017 HISTORY: S/P Uterine ablation 2 days ago with fever and chills per patient. Pain not further specifie d per order. CT DLP: 803.5mGycm Automated Exposure Control for Dose Reduction was Utilized. CONTRAST: CT scan of the abdomen and pelvis is performed without oral but with IV Contrast, patient injected wi th 100 mL of Omnipaque 300. COMPARISON: Transvaginal ultrasound July 15, 2017 FINDINGS: LUNG BASES: Dependent atelectasis in both bases is present. LIVER/GB: Cholecystectomy clips are noted. PANCREAS: No significant abnormality is seen. SPLEEN: No significant abnormality is seen. ADRENALS: No significant abnormality is seen. KIDNEYS: No significant abnormality is seen. BOWEL: Appendix is felt within normal limits extending medially from cecum. UTERUS/ADNEXA: Anteverted uterus is seen. There is gas centrally in the endometrial canal with hypode nsity, nonspecific finding presumed on basis of recent D&C procedure. Both ovaries are present and no t suspiciously enlarged. Tiny amount of free fluid is seen in pelvic cul-de-sac and axial image 79, n onspecific finding to the left of midline. LYMPH NODES: No greater than 1cm abdominal or pelvic lymph nodes are appreciated. OSSEOUS STRUCTURES: No significant abnormality is seen. OTHER: No significant additional abnormality is seen. IMPRESSION: Nonspecific endometrial findings presumed related to recent surgery. Tiny amount of free fluid in pelvic cul-de-sac otherwise unremarkable study.
--- NOTE | 2017-08-14 17:22 | P.HPOB ---
History of Present Illness H&P Date: 08/14/17 Chief Complaint: Fever and chills status post ablation. This patient is a 36-year-old 7 para 5 female who presented to the emergency department with complaints of fever, chills, and general ill feeling status post NovaSure endometrial ablation per Dr. Rubalcava approximately 2 days ago. Patient and her state that initially that she did well after surgery and is having minimal pain, however last evening began having profuse sweating and high fevers. She also was noticing intermittent chills. Temperature here in the emergency department is 104. Patient denies any cough, nausea, vomiting, diarrhea. She denies any other family illnesses. She denies any recent illnesses herself. Evaluation here shows a normal white blood cell count, she does have a small amount of blood in her urine but this most likely is contamination from her recent surgery, and CAT scan of the abdomen and pelvis is for the most part unremarkable. Patient states that she is tolerating regular food without difficulty. Patient states that she is urinating without difficulty. 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 Past Anesthesia/Blood Transfusion Reactions: No Reported Reaction Past Psychological History: Bipolar Smoking Status: Current every day smoker Past Alcohol Use History: None Reported Past Drug Use History: None Reported - Past Family History Mother Family Medical History: No Reported History Medications and Allergies Home Medications Medication Instructions Recorded Confirmed Type Ibuprofen [Motrin] 600 mg PO Q6HR PRN #30 tab 08/12/17 08/14/17 Rx Allergies Allergy/AdvReac Type Severity Reaction Status Date / Time No Known Allergies Allergy Verified 08/14/17 13:00 Exam - Vital Signs Vital signs: Vital Signs Temp Pulse Resp BP Pulse Ox 08/14/17 16:55 82 18 96/52 99 08/14/17 16:12 100.6 F H 84 18 92/53 99 08/14/17 14:51 101.7 F H 93 18 92/54 97 08/14/17 12:52 104.0 F H 115 H 20 144/87 99 Intake and Output 08/14/17 08/14/17 08/14/17 06:59 14:59 22:59 Other: Weight 80.739 kg Patient Weight 08/15/17 06:59 Weight 80.739 kg - OBG Physical Exam Abdomen: Abdomen is tender in the suprapubic area. There is no rebound or guarding. Vulva: both: normal Vagina: normal moisture, no discharge Uterus: Bimanual exam does show uterine tenderness. Uterus: tender Results Result Diagrams: 08/14/17 13:35 08/14/17 13:35 Abnormal Lab Results - Last 24 Hours (Table) 08/14/17 08/14/17 08/14/17 Range/Units 13:35 13:35 13:35 Hgb 11.1 L (11.4-16.0) gm/dL MCV 79.1 L (80.0-100.0) fL Lymphocytes # 0.4 L (1.0-4.8) k/uL Sodium 133 L (137-145) mmol/L Potassium 3.3 L (3.5-5.1) mmol/L Carbon Dioxide 21 L (22-30) mmol/L BUN 6 L (7-17) mg/dL Glucose 114 H (74-99) mg/dL AST 51 H (14-36) U/L Albumin 3.3 L (3.5-5.0) g/dL Urine Blood Moderate H (Negative) Ur Leukocyte Esterase Moderate H (Negative) Urine RBC 9 H (0-5) /hpf Urine WBC 6 H (0-5) /hpf Urine Mucus Rare H (None) /hpf Assessment and Plan Assessment: This is a 36-year-old 7 para 5 female 2 days postoperative from an endometrial ablation with postoperative fevers, chills and apparent uterine tenderness. Although it is uncommon to see a uterine infection with this procedure, I cannot find any other source of her fever. Plan at this time is admission for IV antibiotics and serial CBC. Urine and blood cultures have been done. The emergency department was concern because the patient did have a low blood pressure on several occasions however I do not believe there is any evidence of hypotensive sepsis because her white count is normal and her pulse is normal. We of course will closely observe her however. I have discussed the treatment plan with the patient and her and they are in agreement. (1) Postoperative fever Current Visit: Yes Status: Acute Code(s): R50.82 - POSTPROCEDURAL FEVER SNOMED Code(s): 371220716
[2017-08-14] MEDS: SODIUM CHLORIDE 0.9% 1,000 ML IV SCH (22:05)
[2017-08-14 22:17] VITALS: BMI 30.5
[2017-08-15] MEDS: SODIUM CHLORIDE 0.9% 1,000 ML IV SCH ×4 (01:43→16:11)
[2017-08-15] MEDS: AMPICILLIN-SULBACTAM 3 GM in SODIUM CHLORIDE 0.9% 100 ML IVPB SCH ×3 (01:43→16:11)
[2017-08-15 07:26] LABS: Basophils % (A) 0 %; Eosinophils % (A) 0 %; HCT 33.6 % (34.0-46.0); HGB 10.3 gm/dL (11.4-16.0); Hypochromasia Slight; Lymphocytes # (A) 0.5 k/uL (1.0-4.8); Lymphocytes % (A) 15 %; MCH 25.1 pg (25.0-35.0); MCHC 30.6 g/dL (31.0-37.0); MCV 82.1 fL (80.0-100.0); Monocytes # (A) 0.2 k/uL (0-1.0); Monocytes % (A) 8 %; Neutrophils # (A) 2.5 k/uL (1.3-7.7); Neutrophils % (A) 76 %; Platelet Count 183 k/uL (150-450); RDW 14.9 % (11.5-15.5); WBC 3.2 k/uL (3.8-10.6)
[2017-08-15 07:52] LABS: ALT 54 U/L (9-52); AST 42 U/L (14-36); Albumin 2.7 g/dL (3.5-5.0); Alkaline Phosphatase 133 U/L (38-126); Anion Gap 7 mmol/L; Blood Urea Nitrogen 5 mg/dL (7-17); Carbon Dioxide 22 mmol/L (22-30); Chloride 110 mmol/L (98-107); Glucose 93 mg/dL (74-99); Potassium 3.4 mmol/L (3.5-5.1); Sodium 139 mmol/L (137-145); Total Bilirubin 0.3 mg/dL (0.2-1.3); Total Protein 5.7 g/dL (6.3-8.2)
--- NOTE | 2017-08-15 08:57 | P.PN ---
Progress Note - Text Progress Note Date: 08/15/17 Hospital day #1. Patient is resting without new complaints and states that she is feeling better. She said she did feel some hot flashes last evening however she is completely defervesced and is currently afebrile. Repeat CBC shows white count of 3.2. Patient is tolerating regular diet and has no other symptomatology. Dr. Rubalcava will be and see the patient today but most likely discontinue antibiotics for 24 hours of afebrile and then discharged home on oral antibiotic.
[2017-08-15] MEDS ORDERED: POTASSIUM CHLORIDE ER 20 MEQ TAB.ER PO STA (10:51)
[2017-08-16] MEDS: AMPICILLIN-SULBACTAM 3 GM in SODIUM CHLORIDE 0.9% 100 ML IVPB SCH ×2 (00:40→09:13)
[2017-08-16] MEDS: SODIUM CHLORIDE 0.9% 1,000 ML IV SCH ×2 (00:41→11:03)
[2017-08-16 07:20] LABS: Basophils % (A) 1 %; Eosinophils # (A) 0.1 k/uL (0-0.7); Eosinophils % (A) 1 %; HCT 35.2 % (34.0-46.0); Hypochromasia Slight; Lymphocytes # (A) 1.2 k/uL (1.0-4.8); Lymphocytes % (A) 29 %; MCH 25.1 pg (25.0-35.0); MCHC 31.4 g/dL (31.0-37.0); MCV 79.9 fL (80.0-100.0); Mean Platelet Volume 7.3; Monocytes # (A) 0.4 k/uL (0-1.0); Monocytes % (A) 10 %; Neutrophils # (A) 2.3 k/uL (1.3-7.7); Neutrophils % (A) 57 %; Platelet Count 218 k/uL (150-450); RDW 14.5 % (11.5-15.5)
[2017-08-16 07:38] LABS: ALT 42 U/L (9-52); AST 20 U/L (14-36); Albumin 2.9 g/dL (3.5-5.0); Alkaline Phosphatase 115 U/L (38-126); Anion Gap 8 mmol/L; Blood Urea Nitrogen 4 mg/dL (7-17); Calcium 8.4 mg/dL (8.4-10.2); Carbon Dioxide 24 mmol/L (22-30); Chloride 110 mmol/L (98-107); Glucose 103 mg/dL (74-99); Potassium 3.9 mmol/L (3.5-5.1); Sodium 142 mmol/L (137-145); Total Bilirubin 0.2 mg/dL (0.2-1.3); Total Protein 5.9 g/dL (6.3-8.2)
[2017-08-16 09:34] VITALS: BP 117/75; PULSE 80; RESP 14; TEMP 98.6
--- NOTE | 2017-08-16 12:54 | P.DS ---
Providers Date of admission: 08/14/17 15:23 Expected date of discharge: 08/16/17 Attending physician: Deven Rubalcava Primary care physician: Stated None Hospital Course: Anahy is doing very well today. She's had no further fever since her initial admission. Her white cell count is 4.0 and has never shown any evidence of increased leukocytes. We'll plan to discharge her home today with instructions to follow up me next week. Prescription for Keflex 500 mg by mouth 4 times a day for 5 days has been provided. She is aware to return with any high temperature other changes. However her pain is now subsided and she is doing well and requests discharged home. On exam heart, regular, lungs clear, extremities without pain. Abdomen soft nontender with positive bowel sounds. Assessment status post hyperpyrexia with antibiotic therapy questionable infection status post NovaSure ablation. Plan as above Patient Condition at Discharge: Good Plan - Discharge Summary Discharge Rx Participant: Yes New Discharge Prescriptions: New Cephalexin [Keflex] 500 mg PO Q6HR #20 cap No Action Ibuprofen [Motrin] 600 mg PO Q6HR PRN #30 tab PRN Reason: Pain Discharge Medication List Ibuprofen [Motrin] 600 mg PO Q6HR PRN #30 tab 08/12/17 [Rx] Cephalexin [Keflex] 500 mg PO Q6HR #20 cap 08/16/17 [Rx] Follow up Appointment(s)/Referral(s): None,Stated [Primary Care Provider] - 1-2 days Activity/Diet/Wound Care/Special Instructions: Return with any significantly high temperatures or other problems otherwise follow up with Dr. Schulz next week
== END 2017-08-16 13:25 | disposition home or self-care (01) ==
LOC: EC 12:45 → 3SUR 15:23
PROVIDERS: ADMIT Obstetrics & Gynecology; ATTEND Obstetrics & Gynecology
DX: R50.82 Postprocedural fever (principal); E87.6 Hypokalemia; R03.1 Nonspecific low blood-pressure reading; R25.2 Cramp and spasm; F17.200 Nicotine dependence, unspecified, uncomplicated; C53.9 Malignant neoplasm of cervix uteri, unspecified; M54.5 Low back pain
CPT/HCPCS: 99285; 96361 ×5; 96365 ×2; 96366 ×2; 36415; 93005; 80053 ×3; 83605; 85025 ×3; 85610; 85730; 81001; 87040; 87070; 87086; 87077; 87186; 87502; 71046; 74177; G0378 ×3; Q9967; J0295 ×3; 87205

== ENCOUNTER → 2018-05-26 | Outpatient (CLI) | payer OTHER ==
[2018-05-26 12:21] LABS: Anisocytosis Slight; Basophils % (A) 1 %; Eosinophils # (A) 0.2 k/uL (0-0.7); Eosinophils % (A) 3 %; HCT 36.4 % (34.0-46.0); HGB 11.2 gm/dL (11.4-16.0); Hypochromasia Moderate; Lymphocytes # (A) 1.6 k/uL (1.0-4.8); Lymphocytes % (A) 26 %; MCH 23.7 pg (25.0-35.0); MCHC 30.9 g/dL (31.0-37.0); MCV 76.9 fL (80.0-100.0); Mean Platelet Volume 6.1; Microcytosis Slight; Monocytes # (A) 0.3 k/uL (0-1.0); Monocytes % (A) 4 %; Neutrophils # (A) 4.2 k/uL (1.3-7.7); Neutrophils % (A) 66 %; Platelet Count 335 k/uL (150-450); RBC 4.74 m/uL (3.80-5.40); RDW 16.1 % (11.5-15.5); WBC 6.4 k/uL (3.8-10.6)
[2018-05-26 12:27] LABS: Anion Gap 7 mmol/L; Blood Urea Nitrogen 10 mg/dL (7-17); Calcium 9.1 mg/dL (8.4-10.2); Carbon Dioxide 26 mmol/L (22-30); Chloride 107 mmol/L (98-107); Glucose 101 mg/dL (74-99); Potassium 4.6 mmol/L (3.5-5.1); Sodium 140 mmol/L (137-145)
== END ==
LOC: LABPAT 11:24
PROVIDERS: ATTEND Obstetrics & Gynecology
DX: Z01.812 Encounter for preprocedural laboratory examination (principal)
CPT/HCPCS: 36415; 80048; 85025

== ENCOUNTER 2018-06-02 05:38 | Day surgery (SDC) | payer OTHER ==
[2018-05-30 09:44] VITALS: BMI 29.9
--- NOTE | 2018-06-01 17:05 | P.HPOB ---
History of Present Illness H&P Date: 06/01/18 Chief Complaint: Menorrhagia with failed NovaSure Deanna is a 37-year-old female with heavy vaginal bleeding. She has heavy bleeding and passes large clots each month and recently is had to curl up in a ball for hours at a time due to significant pain. Nonsteroidal anti- inflammatories do not help the pain and she is requesting a hysterectomy to relieve her of her symptoms. Risks/benefits/alternatives to a robotic-assisted laparoscopic hysterectomy were discussed with the patient in detail and all questions were answered for her prior to proceeding to the operating room. Risks did include but were not limited to bleeding and infection, damage to bladder/bowel/nerves/ureters/vessels. 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 Hx hypertension resolved, no meds X2 months. History of Any Multi-Drug Resistant Organisms: None Reported Past Surgical History: Cholecystectomy Additional Past Surgical History / Comment(s): Laser eye surgery, pain procedure , hysteroscopy with D&C and Novasure. Past Anesthesia/Blood Transfusion Reactions: No Reported Reaction Past Psychological History: ADD/ADHD, Bipolar Smoking Status: Current every day smoker Past Alcohol Use History: None Reported Additional Past Alcohol Use History / Comment(s): Smokes 1/2-1 PPD, started smoking age 10. Past Drug Use History: None Reported - Past Family History Mother Family Medical History: No Reported History Medications and Allergies Home Medications Medication Instructions Recorded Confirmed Type Dextroamphetamine/Amphetamine 20 mg PO TID 05/30/18 05/30/18 History [Adderall] Allergies Allergy/AdvReac Type Severity Reaction Status Date / Time No Known Allergies Allergy Verified 05/30/18 09:29 Exam Osteopathic Statement: *. No significant issues noted on an osteopathic structural exam other than those noted in the History and Physical/Consult. - OBG Physical Exam Breast: both: normal (no masses) Abdomen: bowel sounds normal, no diffuse tenderness, no bruit present, no guarding noted, no hepatomegaly, no splenomegaly, no mass Vulva: both: normal Vagina: normal moisture, no discharge Cervix: no lesion, no discharge Uterus: normal size, normal contour Adnexa: both: normal Anus/Rectum: normal perianal skin, no rectal mass, no hemorrhoids, heme negative
[2018-06-02] MEDS ORDERED: DEXAMETHASONE SOD PHOSPHATE 10 MG/ML 1 ML VIAL IV ONE (05:46)
[2018-06-02] MEDS ORDERED: ONDANSETRON 4 MG/2 ML VIAL IVP ONE (05:46)
[2018-06-02] MEDS ORDERED: LIDOCAINE 1% 20 ML VIAL (10MG/ML) FOR IV START INTRADERMA PRN (05:46)
[2018-06-02] MEDS ORDERED: SCOPOLAMINE 1.5MG/72HR PATCH TRANSDERM ONE (05:46)
[2018-06-02] MEDS ORDERED: MIDAZOLAM 2 MG/2 ML VIAL IV PRN (05:46)
[2018-06-02] MEDS: LACTATED RINGERS 1,000 ML IV SCH ×2 (06:38→06:39)
[2018-06-02] MEDS: ceFAZolin IN SWFI 2 GM/20 ML SYRINGE IVP ONE ×2 (07:35→07:49)
[2018-06-02] MEDS ORDERED: MIDAZOLAM 2 MG/2 ML VIAL ONE (07:38)
[2018-06-02] MEDS ORDERED: SUCCINYLCHOLINE CHLORIDE 100 MG/5 ML SYR IV ONE (07:38)
[2018-06-02] MEDS ORDERED: GLYCOPYRROLATE 0.2 MG/ML 2 ML VIAL ONE (07:38)
[2018-06-02] MEDS ORDERED: PROPOFOL 10 MG/ML 20 ML VIAL IV ONE (07:38)
[2018-06-02] MEDS ORDERED: ROCURONIUM BROMIDE 10 MG/ML 10 ML VIAL IV ONE (07:38)
[2018-06-02] MEDS ORDERED: LIDOCAINE 1% INJ 10MG/ML (20 ML MDV) ONE (07:38)
[2018-06-02] MEDS ORDERED: fentaNYL (PF) 50 MCG/ML 2 ML AMP ONE (07:38)
[2018-06-02] MEDS ORDERED: NEOSTIGMINE 1 MG/ML 10 ML VIAL ONE (07:38)
[2018-06-02] MEDS ORDERED: BUPIVACAINE (PF) 0.25% 30 ML VIAL SQ ONE (08:05)
[2018-06-02] MEDS ORDERED: Acetaminophen-Codeine 300-30mg TAB PO PRN (09:27)
[2018-06-02] MEDS ORDERED: ONDANSETRON 4 MG/2 ML VIAL IVP PRN (09:27)
[2018-06-02] MEDS ORDERED: SIMETHICONE 80 MG CHEWABLE PO PRN (09:27)
--- NOTE | 2018-06-02 09:34 | P.OP ---
Date of Procedure: 06/02/18 Preoperative Diagnosis: Menorrhagia with failed NovaSure Postoperative Diagnosis: Same with adhesions Procedure(s) Performed: Robotic-assisted laparoscopic hysterectomy with lysis of adhesions Anesthesia: PRADEEP Surgeon: Deven Rubalcava Appliance Assembler #1: Estela Stevens Estimated Blood Loss (ml): 30 IV fluids (ml): 700 Urine output (ml): 240 Pathology: other (Uterus and cervix) Condition: stable Disposition: floor Operative Findings: Normal uterus and ovaries grossly. There was an adhesion of the omentum to the right adnexa which required lysis. Description of Procedure: Patient was taken to the operating suite where a general anesthetic was found be adequate. She was prepped and draped in the normal sterile fashion and placed in dorsal lithotomy position. Initially a speculum was inserted into the vagina and the anterior lip of the cervix was identified and grasped with a single-tooth tenaculum. Uterus was then sounded to 8 cm and dilated. Once cervix was dilated cup size was measured to 23 cm. Stay sutures were placed at 3 and 9 and then a Jessie manipulator was inserted without difficulty. Kyle catheter was then placed and all other instruments were removed. Gloves were changed and attention was turned to the abdominal portion of the procedure were 2 mL of quarter percent Marcaine was injected periumbilically. Through this injected anesthetic 8 mm skin incision was made and through this incision under direct visualization with an optical trocar and sleeve the camera was inserted. Once peritoneal placement was assured gas was allowed to fully insufflate the abdomen and patient was placed in steep Trendelenburg position. Once this was accomplished 2 lateral incisions of 8 mm were placed approximately 2 cm superior and medial to the ASIS. Once these were placed fourth one set immune incision was made between the left lateral and the medial port and a 1 cm port was inserted through this. Once this was accomplished robotic port was also placed and left scopic was removed from the operative field. Robot was then brought in and docked and a scissor was placed in the one arm and a [place] grasper in the 2 arm area. Once this was accomplished I did break scrub and go to the console. Once at the console uterus was elevated observations the pelvis were noted. Immediately a adhesion to the left adnexa was noted and it was sharply and bluntly dissected off of that area without difficulty. Once this was accomplished left infundibulopelvic layer was identified cauterized and cut mesosalpinx tissue to the fallopian tube was also cauterized and cut and once to the round ligament surrounding was also cauterized and cut. Tissues were then dissected down to skeletonize skeletonized the vascularity on the left-hand side and once this was accomplished undermining the bladder flap was done. Maryland was used to undermine in the scissor to incise across face the uterus and the bladder was bluntly dissected out of the operative field. Attention was then turned to the right side of the uterus with left side completed and in a similar fashion it was developed. Cauterization of the uterine vascularity on both the right and left-hand sides were then done. Balloon was then blown up in the Jessie manipulator and an anterior colpotomy was made. Blue couple was then followed circumferentially 3 and 60 in a clockwise fashion cheating head when necessary to maintain excellent hemostasis. Once this was accomplished uterus was brought into the vagina to maintain pneumoperitoneum. Pedicles were evaluated and hemostasis was obtained. Once this was completed instruments were exchanged for a make suture cut and a cardia grasper and the vaginal cuff was closed with 20 the lock suture in a running fashion. Pelvis was then sent thoroughly irrigated no bleeding is noted from any pedicles ovaries grossly continue to be are normal therefore instruments were removed and gas was allowed to expel from the abdomen. 5 deep breaths were provided during this process. At this point I did re-scrub in and do a cystoscopy with good flow noted from both ureteral jets. Dr. Stevens at the same time was closed and the incision subcuticularly and the remaining 8 mL of quarter percent Marcaine was injected around these incisions. Sponge, lap, needle counts were correct 2. Patient was then taken to the recovery room in stable and satisfactory condition.
[2018-06-02] MEDS: HYDROmorphone 1 MG/ML 1 ML SYRINGE IVP PRN ×2 (10:15→10:21)
[2018-06-02] MEDS: KETOROLAC 30 MG/ML 1 ML VIAL IVP PRN ×2 (10:45→17:21)
[2018-06-02] MEDS: Acetaminophen-Codeine 300-30mg TAB PO PRN (20:44)
[2018-06-02] MEDS ORDERED: SENNOSIDES-DOCUSATE SODIUM 1 EACH TAB PO SCH (21:00)
[2018-06-03] MEDS: Acetaminophen-Codeine 300-30mg TAB PO PRN (06:33)
[2018-06-03 06:52] LABS: Anisocytosis Slight; Basophils % (A) 0 %; Eosinophils # (A) 0.1 k/uL (0-0.7); Eosinophils % (A) 1 %; HCT 32.9 % (34.0-46.0); HGB 10.3 gm/dL (11.4-16.0); Hypochromasia Slight; Lymphocytes % (A) 22 %; MCH 23.7 pg (25.0-35.0); MCHC 31.2 g/dL (31.0-37.0); MCV 75.7 fL (80.0-100.0); Mean Platelet Volume 6.6; Microcytosis Slight; Monocytes # (A) 0.5 k/uL (0-1.0); Monocytes % (A) 5 %; Neutrophils # (A) 6.3 k/uL (1.3-7.7); Neutrophils % (A) 70 %; Platelet Count 301 k/uL (150-450); RBC 4.34 m/uL (3.80-5.40); RDW 16.4 % (11.5-15.5); WBC 8.9 k/uL (3.8-10.6)
[2018-06-03 07:56] VITALS: BP 143/88; PULSE 91; RESP 20; TEMP 99.3
--- NOTE | 2018-06-03 08:29 | P.DS ---
Providers Expected date of discharge: 06/03/18 Attending physician: Deven Rubalcava Primary care physician: Stated None Hospital Course: Deanna is doing very well post operative day 1. She is ambulating, voiding and she is tolerating a diet. She voices no complaints and is requesting discharge to home. Prescription for Tylenol No. 3 and Motrin has been provided. Discharge instructions were thoroughly reviewed and all questions were answered for her prior to her discharge. On physical exam her vital signs are stable and afebrile. Heart regular, lungs clear, extremities without pain. Abdomen is soft and incisions are intact with positive bowel sounds. Assessment postop day 1. Plan discharged home follow up with me in 1 week. Patient Condition at Discharge: Good Plan - Discharge Summary New Discharge Prescriptions: New Acetaminophen-Codeine 300-30mg [Tylenol #3] 1 tab PO Q4H PRN #30 tablet PRN Reason: Pain Ibuprofen [Motrin] 600 mg PO Q6HR PRN #30 tab PRN Reason: Pain No Action Dextroamphetamine/Amphetamine [Adderall] 20 mg PO TID Discharge Medication List Dextroamphetamine/Amphetamine [Adderall] 20 mg PO TID 05/30/18 [History] Acetaminophen-Codeine 300-30mg [Tylenol #3] 1 tab PO Q4H PRN #30 tablet [Rx] Ibuprofen [Motrin] 600 mg PO Q6HR PRN #30 tab 06/03/18 [Rx] Follow up Appointment(s)/Referral(s): Deven Rubalcava DO [Doctor of Osteopathic Medicine] - 1 Week Activity/Diet/Wound Care/Special Instructions: No heavy lifting, limit stairs and driving, and pelvic rest. If any high temperatures heavy bleeding, or severe pain call my office. No tub baths for the next week. Discharge Disposition: HOME SELF-CARE
== END 2018-06-03 10:30 | disposition home or self-care (01) ==
LOC: OR 05:38 → 4FBP 09:19 → OR 06-03 10:30
PROVIDERS: ATTEND Obstetrics & Gynecology
DX: N92.0 Excessive and frequent menstruation with regular cycle (principal); K66.0 Peritoneal adhesions (postprocedural) (postinfection); G40.909 Epilepsy, unspecified, not intractable, without status epilepticus; E07.9 Disorder of thyroid, unspecified; M54.5 Low back pain; F90.9 Attention-deficit hyperactivity disorder, unspecified type; F31.9 Bipolar disorder, unspecified; F17.210 Nicotine dependence, cigarettes, uncomplicated; Z79.899 Other long term (current) drug therapy; Z85.41 Personal history of malignant neoplasm of cervix uteri
CPT/HCPCS: 81025; 86900; 86901; 85025; 86850; 88307; 58570; J2250; J1100; J2710; J2405; J2001; J3010; J1885; J1170; J0330; J2704; J0690

== ENCOUNTER 2019-04-21 15:33 | Emergency (ER) | payer OTHER ==
[2019-04-21 15:37] VITALS: BP 134/93; PULSE 91; RESP 18; TEMP 98.5
--- NOTE | 2019-04-21 16:04 | ED ---
Eye Problem HPI - General Chief complaint: Eye Problems Stated complaint: Eye Pain Time Seen by Provider: 04/21/19 15:42 Source: patient Mode of arrival: ambulatory Limitations: no limitations - History of Present Illness Initial comments: Patient is a 38-year-old female presenting to emergency Department with complaints of right eye irritation since yesterday. Patient states when she got home from [id number] last night she noticed her right upper eyelid was red and swollen. Patient states she has never had anything like this. Patient does not think she got anything in her eye as her eye does not feel irritated only the upper lid. Patient denies fever, chills. Patient denies any blurry vision or eye pain. Patient has no other complaints at this time. Upon arrival to ER, vital signs are stable. - Related Data Home Medications Medication Instructions Recorded Confirmed Dextroamphetamine/Amphetamine 20 mg PO TID 05/30/18 06/02/18 [Adderall] Previous Rx's Medication Instructions Recorded Acetaminophen-Codeine 300-30mg 1 tab PO Q4H PRN #30 tablet 06/03/18 [Tylenol #3] Ibuprofen [Motrin] 600 mg PO Q6HR PRN #30 tab 06/03/18 Erythromycin Ophth Oint [Romycin 1 applic RIGHT EYE QID 5 Days #1 gm 04/21/19 Ophth Oint] Allergies Allergy/AdvReac Type Severity Reaction Status Date / Time No Known Allergies Allergy Verified 04/21/19 15:37 Review of Systems ROS Statement: Those systems with pertinent positive or pertinent negative responses have been documented in the HPI. ROS Other: All systems not noted in ROS Statement are negative. Past Medical History Past Medical History: Cancer, Musculoskeletal Disorder, Seizure Disorder, Thyroid Disorder Additional Past Medical History / Comment(s): hx anemia, epilepsy as child (last seizure 4yrs old) cervical cancer, lower back pain History of Any Multi-Drug Resistant Organisms: None Reported Past Surgical History: Cholecystectomy Additional Past Surgical History / Comment(s): laser eye surgery, pain procedure, hysteroscopy with D&C and NovaSure on August 12. Past Anesthesia/Blood Transfusion Reactions: No Reported Reaction Past Psychological History: Bipolar Smoking Status: Current every day smoker Past Alcohol Use History: None Reported Past Drug Use History: None Reported - Past Family History Mother Family Medical History: No Reported History General Exam - General Exam Comments Initial Comments: GENERAL: Well-appearing, well-nourished and in no acute distress. HEAD: Atraumatic, normocephalic. EYES: Pupils equal round and reactive to light, extraocular movements intact, sclera anicteric, conjunctiva are normal. There is erythema and mild swelling of the right upper eyelid. There is also a single pustule present on the lateral aspect of the upper eyelid, consistent with a hordeolum ENT: Nares patent, oropharynx clear without exudates. Moist mucous membranes. NECK: Normal range of motion, supple without lymphadenopathy or JVD. LUNGS: Breath sounds clear to auscultation bilaterally and equal. No wheezes rales or rhonchi. HEART: Regular rate and rhythm without murmurs, rubs or gallops. EXTREMITIES: Normal range of motion, no pitting or edema. No clubbing or cyanosis. NEUROLOGICAL: Cranial nerves II through XII grossly intact. PSYCH: Normal mood, normal affect. SKIN: Warm, Dry, normal turgor, no rashes or lesions noted. Limitations: no limitations Course Vital Signs 04/21/19 15:35 Temperature 98.5 F Pulse Rate 91 Respiratory 18 Rate Blood Pressure 134/93 O2 Sat by Pulse 100 Oximetry Medical Decision Making - Medical Decision Making Patient is a 38-year-old female presenting with right upper eyelid irritation since yesterday. On exam patient has findings consistent with her right upper eyelid hordeolum. Patient will be started on antibiotic ointment and will use warm compresses. Patient is in agreement with this plan of care. Patient is stable for discharge at this time. Patient will follow up with her eye doctor or PCP if symptoms persist after one week. Disposition Clinical Impression: Hordeolum externum right upper eyelid Disposition: HOME SELF-CARE Condition: Stable Instructions (If sedation given, give patient instructions): Leonela (ED) Additional Instructions: Please return to the Emergency Department if symptoms worsen or any other concerns. Use warm compresses and use antibiotic ointment as prescribed. Follow-up with eye doctor or PCP if symptoms persist. Prescriptions: Erythromycin Ophth Oint [Romycin Ophth Oint] 1 applic RIGHT EYE QID 5 Days #1 gm Is patient prescribed a controlled substance at d/c from ED?: No Referrals: None,Stated [Primary Care Provider] - 1-2 days
== END 2019-04-21 16:31 | disposition home or self-care (01) ==
LOC: EC 15:33
DX: H00.011 Hordeolum externum right upper eyelid (principal); F17.200 Nicotine dependence, unspecified, uncomplicated; Z85.41 Personal history of malignant neoplasm of cervix uteri
CPT/HCPCS: 99283

== ENCOUNTER 2019-06-27 11:25 | Emergency (ER) | payer OTHER | END 2019-06-27 12:34 | disposition left against medical advice (07) | LOC: EC 11:25 | DX: Z53.21 Procedure and treatment not carried out due to patient leaving prior to being seen by health care provider (principal) | CPT/HCPCS: 99499 ==

== ENCOUNTER → 2019-07-29 | Outpatient (CLI) | payer OTHER ==
--- NOTE | 2019-07-29 18:42 | XR ---
EXAMINATION TYPE: XR wrist complete RT DATE OF EXAM: 07/29/2019 CLINICAL HISTORY: Right wrist pain for one month with no known injury TECHNIQUE: Frontal, lateral and oblique images of the right wrist are obtained. Scaphoid view was al so obtained. COMPARISON: None FINDINGS: There is no acute fracture/dislocation evident in the right wrist. The joint spaces in th e right wrist appear within normal limits. The overlying soft tissue appears unremarkable. IMPRESSION: There is no acute fracture or dislocation in the right wrist.
== END | disposition home or self-care (01) ==
LOC: RADXRMAIN 10:11
PROVIDERS: ATTEND Physician Assistant Medical
DX: M25.531 Pain in right wrist (principal)